=== PATIENT | female | born 1980 | race Caucasian/White ===

== ENCOUNTER 2020-11-08 09:17 | Emergency (ER) | payer BC ==
[~2020-11-08] VITALS: Ht 175.3 cm; Wt 99.8 kg
--- NOTE | 2020-11-08 17:57 | EKG ---
[facility] [address] [facility] [place], [place] [address] Signed Normal sinus rhythm Normal ECG No previous ECGs available Confirmed by SAMIR CRAIG MD ([id number]) on 11/08/2020 5:57:43 PM Electronically Signed By: SAMIR CRAIG MD 11/08/20 1757 PATIENT NAME: MEJIA PULIDO Electrocardiogram DATE OF : 76 PHYSICIAN: SAMIR CRAIG MD REPORT #: [id number] REPORT IS CONFIDENTIAL AND NOT TO BE RELEASED WITHOUT AUTHORIZATION
== END 2020-11-08 11:36 | disposition home or self-care (01) ==
LOC: ED 09:17
DX: R00.2 Palpitations (principal); I48.91 Unspecified atrial fibrillation; D64.9 Anemia, unspecified
CPT/HCPCS: 80053; 81001; 83735; 84443; 84484; 84703; 85025; 93005; 93010; 99285-25

== ENCOUNTER 2021-04-04 06:00 | Day surgery (SDC) | payer BC ==
[~2021-04-04] VITALS: Ht 175.3 cm; Wt 97.0 kg
--- NOTE | ~2021-04-04 | OR ---
[facility] [address] [place], [place] [address] Draft DATE OF OPERATION: 04/04/2021 SURGEON: Erika Mcpherson MD PREOPERATIVE DIAGNOSIS: CIN3. POSTOPERATIVE DIAGNOSIS: CIN3 pending pathology. PROCEDURE: Cone biopsy. ANESTHESIA: MAC. ESTIMATED BLOOD LOSS: 50 mL. DRAINS: None. INDICATIONS AND FINDINGS: The patient is a 40-year-old female who had a recent abnormal Pap smear with high-grade lesion. Biopsies revealed CIN3. She was counseled for a cone biopsy. At the time of surgery, exam under anesthesia revealed a large cervix. Uterus was top-normal size. There was a small nonstaining area posteriorly. DESCRIPTION OF PROCEDURE: The patient was prepped and draped in the dorsal lithotomy position. An open-sided speculum was placed. Sutures of 0 chromic were placed at 3 and 9 o'clock. The cervix was then stained with Lugol's. Following this, knife was used to circumscribe the ectocervix, taking care to incorporate the nonstaining area posteriorly. This was begun at 3 o'clock and brought around to 3 o'clock again. This was amputated at the base with scissors. A small piece came off at 12 o'clock and this was separately marked. The remainder of the specimen was marked at 9 o'clock. Following this, cautery was used over the base of the cervix in an effort to control bleeding. There continued to be some bleeding from the posterior aspect between like 4 and 7 o'clock, and several wegwas-ca-xplkub of 0 chromic were placed from inside to out controlling the bleeding in this area. There was another area from 10 to 11, which also required several sutures to PATIENT NAME: MEJIA PULIDO OPERATIVE REPORT DATE OF : 76 REPORT #: [id number] PHYSICIAN: ERIKA MCPHERSON MD PCP: RICHARD CANTOR PA-C REPORT IS CONFIDENTIAL AND NOT TO BE RELEASED WITHOUT AUTHORIZATION [facility] [address] [place], [place] [address] Draft control the bleeding. ECC was done with curette and a small amount of tissue found. The base of the specimen appeared to be hemostatic at this time. Monsel's solution was placed on a large Q-tip and this was placed into the base and pressure applied. Following this, the cervix was re-visualized and the base is gently irrigated and there was no evidence of any ongoing bleeding. The base was packed with Gelfoam and the stay sutures were tied across the Gel-Foam to keep this in place. The speculum was then removed. All sponge and needle counts were correct. She tolerated the procedure well and was taken to the recovery room in good condition. MD FANNY Nails/TRINY /[id number] cc: Richard Cantor PA-C Copies: ~ PATIENT NAME: MEJIA PULIDO OPERATIVE REPORT DATE OF : 76 REPORT #: [id number] PHYSICIAN: ERIKA MCPHERSON MD PCP: RICHARD CANTOR PA-C REPORT IS CONFIDENTIAL AND NOT TO BE RELEASED WITHOUT AUTHORIZATION
[~2021-04-04 06:00] MED LIST: AMITRIPTYLINE H50 MG PO; CIMETIDINE800 MG PO; FERROUS GLUCON324 M1 PO; IBU800 MG PO; IRON325 M1 PO; LISINOPRIL20 MG PO; METFORMIN HCL500 M2 PO; MULTI VITAMIN1 EACH PO; OMEPRAZOLE20 MG PO; PRAVASTATIN SOD40 MG PO
--- NOTE | 2021-04-04 09:39 | NUR ---
04/04/21 0939 Shantal Mcclelland 0817 PT ARRIVED IN PACU SLEEPY WITH NO C/O'S. 0833 C/O ABD CRAMPING 10/17. FENTANYL 25MCG GIVEN IVP. WARM BLANKET PLACED ON ABD PER PT REQUEST. 0845 PAIN SLOWLY COMING DOWN. DECLINED PAIN MED AT THIS TIME. 0900 SITTING UP IN BED SIPPING ON WATER. C/O FEELING DIZZY. 0905 UP TO BATHROOM WITH ONE PERSON ASSIST. VOIDED. BACK AT BEDSIDE. 916 DC INSTRUCTIONS GIVEN. ALL QUESTIONS ANSWERED. LEFT VIA W/C.
--- NOTE | 2021-04-05 18:13 | PATH ---
[facility] [address] [place], [place] [address] Signed SPECIMEN(S): A ENDOCERVICAL CURETTINGS SPECIMEN(S): B CERVICAL CONE BIOPSY 12 O'CLOCK SPECIMEN(S): C CERVICAL CONE BIOPSY 9 O'CLOCK SPECIMEN SOURCE: A. ENDOCERVICAL CURETTINGS B. CERVICAL CONE BIOPSY 12 O'CLOCK C. CERVICAL CONE BIOPSY 9 O'CLOCK CLINICAL HISTORY: A. 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 C. Specimen marked at 0900. FINAL PATHOLOGIC DIAGNOSIS: A. Endocervix, curettage: - Endocervical mucosa and detached endocervical glands with no histopathologic abnormality. - Proliferative endometrium. - Negative for dysplasia. B. Cervix, 12 o'clock, cone biopsy: - Focal high-grade squamous intraepithelial lesion (HSIL, CIRILO 3). - See Comment. C. Cervix, 9 o'clock, cone biopsy: - High-grade squamous intraepithelial lesion (HSIL, CIRILO 3). - Surgical margins negative for dysplasia. COMMENT: Regarding specimen B: The HSIL is confirmed with strong, block-like p16 positivity (with appropriately staining controls). The HSIL is not seen at the cauterized and inked specimen edge, but definitive margin assessment is precluded by lack of orientation. The patient's most recent cervical cytology from 02/28/21 ([id number]), interpreted as HSIL, and found to be high risk HPV positive by molecular testing, was reviewed. NAL:cml:C2NR MICROSCOPIC EXAMINATION: Histologic sections of all submitted blocks are examined by light microscopy. These findings, together with the gross examination, support the pathologic diagnosis. GROSS DESCRIPTION: PATIENT NAME: MEJIA PULIDO PATHOLOGY DATE OF : 76 REPORT #: [id number] PHYSICIAN: STEPHANE PATHOLOGY PCP: RICHARD FRIAS PA-C REPORT IS CONFIDENTIAL AND NOT TO BE RELEASED WITHOUT AUTHORIZATION [facility] [address] [place], [place] [address] Signed Three specimens are received in three containers, labeled "CW." A. The specimen, labeled "CW, endocervical curettings," is received in formalin and consists of irregular shaped membranous and hemorrhagic tissue fragment that aggregate measure 1.3 x 1.0 x 0.2 cm. Specimen is entirely submitted in cassette (A1). B. The specimen, labeled "CW, cervical, biopsy at 12 o'clock," is received in formalin and consists of one piece of irregular shaped cervical tissue that measure 1.0 x 0.5 x 0.1 cm. The ectocervix is pink-sanz, smooth. The resection margins inked and specimen is sectioned. Specimen is entirely submitted in cassette (B1). C. The specimen, labeled "CW, cervical cone biopsy at 9 o'clock.," is received in formalin and consists of irregular shaped cervical tissue fragment that measure 2.4 x 1.7 x 1.1 cm. The ectocervix is pink-sanz, white. The specimen is tagged at 9 o'clock. The 9 o'clock edge is inked blue. The remaining of the resection margins inked black. Specimen is entirely submitted in cassettes (C1-C3). JS (under the direct supervision of a pathologist) The Gross Description was prepared using a voice recognition system. The report was reviewed for accuracy; however, sound-alike word errors, addition and/or deletions may occur. If there is any question about this report, please contact Client Services. PERFORMING LABORATORY: The technical component was performed by [facility], [address] [place] [id number] (Echo Vascular Technologist: Andie Raymundo MD; CLIA# [id number]).[facility], [address] [place] [address] (CLIA# [id number]). Diagnostician: Sharron Guerrero MD Pathologist Electronically Signed 04/05/2021 Copies: ~ PATIENT NAME: MEJIA PULIDO PATHOLOGY DATE OF : 76 REPORT #: [id number] PHYSICIAN: STEPHANE HART PCP: RICHARD FRIAS PA-C REPORT IS CONFIDENTIAL AND NOT TO BE RELEASED WITHOUT AUTHORIZATION
== END 2021-04-04 09:17 | disposition home or self-care (01) ==
LOC: DS 06:00
PROVIDERS: ATTEND Obstetrics & Gynecology
PROC: 0UBC7ZX Excision of Cervix, Via Natural or Artificial Opening, Diagnostic (ICD-10-PCS; principal; 2021-04-04 07:30)
DX: D06.1 Carcinoma in situ of exocervix (principal); E66.09 Other obesity due to excess calories; Z68.31 Body mass index [BMI] 31.0-31.9, adult
CPT/HCPCS: 84703; J0131; J1100; J1885; J2001; J2250; J2405; J2704; J2765; J3010; J7121